=== PATIENT | female | born 1940 | race Caucasian/White ===

== ENCOUNTER → 2016-08-17 | Outpatient (CLI) | payer BC ==
[~2016-08-17] MED LIST: ANTIVERT 25MG25 MG PO; ANTIVERT/2525 M1 PO; B-12 100 MCG PO; BIO-CEF500 MG PO; CEPHALEXIN500 M1 PO; CITRACAL PLUS1 TAB PO; DILAUDID 2MG TAB2 MG PO; ENALAPRIL10 MG PO; GLUCOSAMINE & C1 CA1 PO; HCTZ 25MG25 MG PO; LUTEIN20 M1 PO; MERIBIN5 MG PO; NIACIN 100100 MG/TAB PO; NORCO 325 MG-7.1 TA1 PO; PHENERGAN 25 TA25 MG PO; PROAIR HFA0.09 MG/AC IH; RT ADVAIR 228 DISKUS IH; SINGULAIR 4MG CH4 MG PO; VASOTEC 10M10 MG/TAB PO; VENTOLIN0.09 MG IH; VITAMIN D1000 IU PO
== END ==
LOC: MC.RAD 11:20
DX: Z12.31 Encounter for screening mammogram for malignant neoplasm of breast (principal)

== ENCOUNTER 2017-04-17 16:52 | Emergency (ER) | payer MEDICARE, BC ==
[~2017-04-17] VITALS: Ht 154.9 cm; Wt 58.2 kg
[2017-04-17 16:55] VITALS: BP 161/76; TEMP 98.1
[2017-04-17 19:50] VITALS: PULSE 76
== END 2017-04-17 19:50 | disposition home or self-care (01) ==
LOC: COL.ER 16:52
DX: S63.601A Unspecified sprain of right thumb, initial encounter (principal); S80.02XA Contusion of left knee, initial encounter; S00.81XA Abrasion of other part of head, initial encounter; Z79.51 Long term (current) use of inhaled steroids; W01.198A Fall on same level from slipping, tripping and stumbling with subsequent striking against other object, initial encounter; Y92.410 Unspecified street and highway as the place of occurrence of the external cause
CPT/HCPCS: Q4021

== ENCOUNTER → 2017-09-07 | Outpatient (CLI) | payer MEDICARE, BC | LOC: MC.RAD 13:20 | DX: Z12.31 Encounter for screening mammogram for malignant neoplasm of breast (principal) ==

== ENCOUNTER 2018-01-11 08:37 | Day surgery (SDC) | payer MEDICARE, BC ==
[~2018-01-11] VITALS: Ht 154.9 cm; Wt 58.0 kg
[2018-01-11] MEDS ORDERED: PROAIR HFA0.09 MG/AC IH (09:07)
[2018-01-11] MEDS ORDERED: ZANTAC 150MG T150 MG PO (09:08)
[2018-01-11] MEDS ORDERED: LYCOPENE10 M2 PO (09:09)
[2018-01-11 09:34] VITALS: BP 158/83; PULSE 81; TEMP 98.1
[2018-01-11 11:00] VITALS: BP 117/63; PULSE 81; TEMP 98.1
[2018-01-11 11:15] VITALS: BP 132/67; PULSE 72
[2018-01-11 11:36] VITALS: BP 152/71; PULSE 78
[2018-01-11 11:45] VITALS: BP 150/85; PULSE 82
== END 2018-01-11 12:00 | disposition home or self-care (01) ==
LOC: SDCO 08:37
DX: D12.0 Benign neoplasm of cecum (principal); K57.30 Diverticulosis of large intestine without perforation or abscess without bleeding; K64.0 First degree hemorrhoids; I10 Essential (primary) hypertension; J45.909 Unspecified asthma, uncomplicated; K21.9 Gastro-esophageal reflux disease without esophagitis; H81.09 Meniere's disease, unspecified ear; Z85.828 Personal history of other malignant neoplasm of skin; Z90.49 Acquired absence of other specified parts of digestive tract; Z88.6 Allergy status to analgesic agent; Z88.2 Allergy status to sulfonamides; Z88.1 Allergy status to other antibiotic agents; Z88.8 Allergy status to other drugs, medicaments and biological substances
CPT/HCPCS: J2704; J7030

== ENCOUNTER → 2018-09-22 | Outpatient (CLI) | payer MEDICARE, BC ==
[~2018-09-22] MED LIST changes: +LYCOPENE10 M2 PO; +ZANTAC 150MG T150 MG PO
== END ==
LOC: MC.RAD 09:45
DX: Z12.31 Encounter for screening mammogram for malignant neoplasm of breast (principal)

== ENCOUNTER → 2019-09-26 | Outpatient (CLI) | payer MEDICARE, BC | LOC: MC.RAD 13:00 | DX: Z12.31 Encounter for screening mammogram for malignant neoplasm of breast (principal) ==

== ENCOUNTER 2020-02-26 13:01 | Emergency (ER) | payer MEDICARE, BC ==
[~2020-02-26] VITALS: Ht 149.9 cm; Wt 54.1 kg
[2020-02-26 13:47] LABS: BASO # 0.1 (0.0-0.2); BASO % 0.7 % (0.0-2.0); EOS # 0.1 (0.0-0.7); EOS % 0.8 % (0-4.0); GRAN # 5.8 (1.4-6.5); GRAN % 67.4 % (42.2-75.2); HEMATOCRIT 38.5 % (37.0-47.0); HEMOGLOBIN 12.6 g/dl (12.5-16.0); LYMPH # 1.7 (1.2-3.4); LYMPH % 19.8 % (20.0-51.0); MEAN CELL VOLUME 91 fl (80.0-100.0); MEAN CORPUSCULAR HEMOGLOBIN 30 pg (27.0-31.0); MEAN CORPUSCULAR HGB CONC 33 g/dl (33.0-37.0); MEAN PLATELET VOLUME 10.2 fl (7.4-10.4); MONO % 11.1 % (1.7-9.3); PLATELET COUNT 307 K/mm3 (130-400); RED BLOOD COUNT 4.24 M/mm3 (4.10-5.30); REDCELL DISTRIBUTION WIDTH-CV 13.5 % (11.5-14.5)
[2020-02-26 13:50] LABS: INR 1.1 (0.8-3.0); PROTHROMBIN TIME 12.4 SECONDS (9.7-12.8)
[2020-02-26 13:53] LABS: PARTIAL THROMBOPLASTIN TIME 32.9 SECONDS (26.0-37.0)
[2020-02-26 13:54] LABS: ALANINE AMINOTRANSFERASE 17 U/L (4-34); ALBUMIN 4.5 gm/dL (3.5-5.0); ALKALINE PHOSPHATASE 79 U/L (50-136); ANION GAP 9 mmol/L (7-16); AST,SGOT 31 U/L (15-37); BILIRUBIN,TOTAL 0.5 mg/dL (0.0-1.0); BLOOD UREA NITROGEN 16 mg/dL (7-17); CALCIUM 10.3 mg/dL (8.4-10.2); CARBON DIOXIDE 27 mmol/L (22-30); CHLORIDE 99 mmol/L (98-107); CREATININE, serum 0.61 (0.52-1.25); GLUCOSE 96 mg/dL (74-106); POTASSIUM 3.6 mmol/L (3.4-5.0); SODIUM 135 mmol/L (137-145); TOTAL PROTEIN 7.2 gm/dL (6.4-8.2)
[2020-02-26 14:23] LABS: TROPONIN-I < 0.012 ng/mL (0.000-0.035)
[2020-02-26] MEDS ORDERED: TOPROL XL 25MG25 MG PO (14:38)
[2020-02-26 15:26] VITALS: BP 140/81; PULSE 79; TEMP 97.9
== END 2020-02-26 15:32 | disposition home or self-care (01) ==
LOC: COL.ER 13:01
PROVIDERS: Family Medicine
DX: I47.1 Supraventricular tachycardia (principal); J45.909 Unspecified asthma, uncomplicated; Z88.6 Allergy status to analgesic agent; Z88.2 Allergy status to sulfonamides; Z88.8 Allergy status to other drugs, medicaments and biological substances
CPT/HCPCS: J7030

== ENCOUNTER → 2020-11-04 | Outpatient (CLI) | payer MEDICARE, BC ==
[~2020-11-04] MED LIST changes: +TOPROL XL 25MG25 MG PO
== END ==
LOC: MC.RAD 11:22
DX: Z12.31 Encounter for screening mammogram for malignant neoplasm of breast (principal)

== ENCOUNTER 2021-01-14 09:13 | Day surgery (SDC) | payer MEDICARE, BC ==
[~2021-01-14] VITALS: Ht 149.9 cm; Wt 53.6 kg
[2021-01-14] MEDS ORDERED: PEPCID 20MG TAB20 MG PO (09:32)
[2021-01-14] MEDS ORDERED: HCTZ 25MG TAB25 MG PO (09:33)
[2021-01-14] MEDS ORDERED: RETIN-A0.0251 TP (09:33)
[2021-01-14] MEDS ORDERED: LYCOPENE10 M2 PO (09:35)
[2021-01-14] MEDS ORDERED: TUMS500 MG PO (09:35)
[2021-01-14] MEDS ORDERED: LUTEIN20 M1 PO (09:35)
[2021-01-14 10:09] VITALS: BP 150/88; PULSE 66; TEMP 96.7
[2021-01-14 10:50] VITALS: BP 125/66; PULSE 85; TEMP 97.8
[2021-01-14 11:00] VITALS: BP 136/86; PULSE 80
[2021-01-14 11:15] VITALS: BP 138/70; PULSE 73
[2021-01-14 11:30] VITALS: BP 142/63; PULSE 75
[2021-01-14 11:45] VITALS: BP 137/59; PULSE 80
--- NOTE | 2021-01-14 12:15 | NUR ---
1050 Pt returns from endo procedure via cart and RN assist to [facility]. Pt ambulates from cart to recliner with RN assist. Monitors on and alarms set. Call light within reach. Report received from [facility] Reddy. Pt alert and oriented. Pt requests juice and muffin. Pt denies any pain or nausea. present in room with pt. 1130 Pt taking food and drink well. No complications noted. 1205 Discharge instructions given to pt and . All questions answered to their satisfaction. Handed to pt are a thank you card and discharge information. 1215 Pt transferred out of the hospital via wheelchair and this RN assist, to private vehicle driven by pt's .
== END 2021-01-14 12:15 | disposition home or self-care (01) ==
LOC: SDCO 09:13
DX: Z12.11 Encounter for screening for malignant neoplasm of colon (principal); D12.5 Benign neoplasm of sigmoid colon; Z86.010 Personal history of colon polyps; Z80.0 Family history of malignant neoplasm of digestive organs; K57.30 Diverticulosis of large intestine without perforation or abscess without bleeding; K64.0 First degree hemorrhoids; Z85.828 Personal history of other malignant neoplasm of skin; M19.90 Unspecified osteoarthritis, unspecified site; J45.909 Unspecified asthma, uncomplicated
CPT/HCPCS: J7030

== ENCOUNTER → 2021-11-05 | Outpatient (CLI) | payer MEDICARE, BC ==
[~2021-11-05] MED LIST changes: +HCTZ 25MG TAB25 MG PO; +PEPCID 20MG TAB20 MG PO; +RETIN-A0.0251 TP; +TUMS500 MG PO
== END ==
LOC: MC.RAD 10:45
DX: Z12.31 Encounter for screening mammogram for malignant neoplasm of breast (principal)

== ENCOUNTER 2023-11-20 08:45 | Emergency (ER) | payer MEDICARE, BC ==
[~2023-11-20] VITALS: Ht 147.3 cm; Wt 50.9 kg
[2023-11-20 08:53] VITALS: TEMP 98.2
[2023-11-20 10:29] VITALS: BP 137/80; PULSE 83
== END 2023-11-20 10:29 | disposition home or self-care (01) ==
LOC: COL.ER 08:45
DX: S51.811A Laceration without foreign body of right forearm, initial encounter (principal); W19.XXXA Unspecified fall, initial encounter